=== PATIENT | male | born 1945 | race Caucasian/White ===

== ENCOUNTER 2025-05-25 01:09 | Inpatient (IN) | payer MEDICARE, BC ==
[~2025-05-25] VITALS: Ht 177.8 cm; Wt 67.6 kg
[2025-05-25] MEDS ORDERED: BETH10TA3 PO (01:56)
[2025-05-25] MEDS ORDERED: TEST200V3 IM (01:56)
[2025-05-25] MEDS ORDERED: LEVO100T PO (01:56)
[2025-05-25] MEDS ORDERED: VALA500T PO (01:56)
[2025-05-25] MEDS ORDERED: ALLO100T PO (01:56)
[2025-05-25] MEDS ORDERED: ROSU5TAB PO (01:56)
[2025-05-25] MEDS ORDERED: FLUT16SP16 NS (01:56)
[2025-05-25] MEDS ORDERED: TAMS0.4C PO (01:56)
[2025-05-25] MEDS ORDERED: FLUC100T12 PO (01:56)
[2025-05-25] MEDS ORDERED: FINA5TAB11 PO (01:56)
[2025-05-25] MEDS ORDERED: ESCI10TA PO (01:56)
[2025-05-25] MEDS ORDERED: PANT40TA49 PO (01:56)
[2025-05-25] MEDS ORDERED: PREG-233 PO (01:56)
[2025-05-25] MEDS ORDERED: CALC0.5C11 PO (01:56)
[2025-05-25] MEDS ORDERED: SITA50TA PO (01:56)
[2025-05-25 02:26] LABS: PLATELET COUNT (AUTO) 235 K/uL (152-348); RED BLOOD CELL COUNT(AUTO) 4.59 MIL/uL (4.06-5.63); RED CELL DISTRIBUTION WIDTH 16.1 % (12.1-16.2); WHITE BLOOD COUNT (AUTO) 8.4 K/uL (3.6-10.2)
[2025-05-25] MEDS ORDERED: CEFEPIME HCL 1 G VIAL ONE (02:28)
[2025-05-25 02:31] LABS: CREATININE 2.7 mg/dL (0.6-1.3); SODIUM SERUM 138 mmol/L (136-145); UREA NITROGEN, BLOOD 41 mg/dL (7-18)
[2025-05-25] MEDS: CEFEPIME (MAXEPIME) 1 G in IV DEXTROSE 5% 50 ML IV ONE (02:33)
[2025-05-25 02:46] LABS: ASPARTATE AMINOTRANSFERASE 19 U/L (15-37); TOTAL PROTEIN, SERUM 7.3 g/dL (6.4-8.2)
[2025-05-25 03:48] LABS: *BILIRUBIN,URIN NEGATIVE (NEGATIVE); *BLOOD, URINE 3+ (NEGATIVE); *CLARITY,URINE TURBID (CLEAR); *COLOR,URINE LIGHT YELLOW (YELLOW); *KETONES,URINE 2+ (NEGATIVE); *PROTEIN,URINE 3+ (NEGATIVE); *UROBILINOGEN,URINE 0.2 E.U./dl (NORMAL); LEUKOCYTE ESTERASE ,URINE 3+ (NEGATIVE); NITRITE, URINE NEGATIVE (NEGATIVE); UGLUCOSE NEGATIVE (NEGATIVE)
[2025-05-25] MEDS ORDERED: REMEDY ESSENTIAL ZINC PASTE 113 GM TP PRN (05:30)
[2025-05-25] MEDS ORDERED: ACETAMINOPHEN 325 MG TABLET PO PRN (05:30)
[2025-05-25] MEDS: IV NORMAL SALINE 1000 ML BAG IV ONE (06:15)
[2025-05-25 07:51] VITALS: BP 113/60
[2025-05-25] MEDS ORDERED: ONDANSETRON 4 MG/2 ML VIAL ONE (08:04)
[2025-05-25] MEDS ORDERED: MORPHINE SULFATE 2 MG/1 ML DISP.SYRIN ONE (08:05)
[2025-05-25] MEDS: MORPHINE SULFATE 2 MG/1 ML DISP.SYRIN IV PRN (08:12)
[2025-05-25] MEDS: ONDANSETRON 4 MG/2 ML VIAL IV PRN (08:12)
[2025-05-25 09:03] VITALS: BP 122/55; TEMP 98.6; O2SAT 96
[2025-05-25] MEDS: IV D5/ 0.9% NACL 1,000 ML IV PRN (10:16)
[2025-05-25] MEDS ORDERED: BACL10TA PO (10:28)
[2025-05-25] MEDS ORDERED: FOSFOMYCIN 3 GM PO (10:31)
[2025-05-25] MEDS ORDERED: TAPE150T PO (10:33)
[2025-05-25] MEDS ORDERED: VITA-287 PO (10:36)
[2025-05-25] MEDS ORDERED: CYAN100T44 PO (10:36)
[2025-05-25] MEDS ORDERED: OXYC5TAB3 PO (10:38)
[2025-05-25] MEDS ORDERED: PHENAZOPYRIDINE HCL 100 MG TABLET PO PRN (11:30)
[2025-05-25] MEDS ORDERED: CEFEPIME (MAXEPIME) 1 G in IV DEXTROSE 5% 50 ML IV SCH ×2 (14:00→23:00)
[2025-05-25 16:06] VITALS: BP 133/61; TEMP 97.8; O2SAT 97
[2025-05-25 19:10] VITALS: BP 95/77; TEMP 98.4; O2SAT 95
[2025-05-26 05:18] VITALS: BP 129/76; TEMP 97.7; O2SAT 94
[2025-05-26 07:10] LABS: PLATELET COUNT (AUTO) 208 K/uL (152-348); RED BLOOD CELL COUNT(AUTO) 4.50 MIL/uL (4.06-5.63); RED CELL DISTRIBUTION WIDTH 15.9 % (12.1-16.2); WHITE BLOOD COUNT (AUTO) 10.1 K/uL (3.6-10.2)
[2025-05-26 07:27] LABS: CREATININE 2.4 mg/dL (0.6-1.3); SODIUM SERUM 146 mmol/L (136-145); UREA NITROGEN, BLOOD 30 mg/dL (7-18)
[2025-05-26] MEDS: MEROPENEM 1 G in IV NORMAL SALINE 100 ML IV SCH (09:53)
[2025-05-26 11:04] VITALS: BP 136/77; TEMP 97.3; O2SAT 95
[2025-05-26] MEDS: MAGNESIUM OXIDE 400 MG TABLET PO ONE (11:31)
[2025-05-26] MEDS ORDERED: BACLOFEN 10 MG TABLET PO PRN (11:45)
[2025-05-26] MEDS: OXYCODONE HCL 5 MG TABLET PO PRN (13:38)
[2025-05-26] MEDS ORDERED: PHENAZOPYRIDINE HCL 100 MG TABLET PO SCH ×2 (14:00)
[2025-05-26] MEDS: BETHANECHOL CHLORIDE 10 MG TABLET PO SCH (15:06)
[2025-05-26 15:22] VITALS: BP_SYST 105; BP_SYST 132; BP_DIAS 60; BP_DIAS 78; TEMP 97.8; TEMP 98.3; O2SAT 95; O2SAT 96
[2025-05-26] MEDS: OXYBUTYNIN CHLORIDE 5 MG TABLET PO PRN (16:47)
[2025-05-26] MEDS: ENSURE ENLIVE (VAN) 240 ML LIQUID PO SCH (17:47)
[2025-05-26] MEDS: NEUTRA PHOS PACKET PO ONE (17:47)
[2025-05-26 19:09] VITALS: BP 131/74; TEMP 97.7; O2SAT 96
[2025-05-26] MEDS: ATORVASTATIN 10 MG TABLET PO SCH (21:11)
[2025-05-26] MEDS: PREGABALIN 50 MG CAPSULE PO SCH (21:11)
[2025-05-27 05:39] VITALS: BP 121/67; TEMP 98.3; O2SAT 95
[2025-05-27] MEDS: LEVOTHYROXINE SODIUM 100 MCG TABLET PO SCH (06:37)
[2025-05-27 07:00] LABS: PLATELET COUNT (AUTO) 229 K/uL (152-348); RED BLOOD CELL COUNT(AUTO) 4.50 MIL/uL (4.06-5.63); RED CELL DISTRIBUTION WIDTH 16.3 % (12.1-16.2); WHITE BLOOD COUNT (AUTO) 12.2 K/uL (3.6-10.2)
[2025-05-27 07:34] LABS: CREATININE 2.0 mg/dL (0.6-1.3); SODIUM SERUM 142 mmol/L (136-145); UREA NITROGEN, BLOOD 25 mg/dL (7-18)
[2025-05-27 08:04] VITALS: BP 158/89; TEMP 98.1; O2SAT 95
[2025-05-27] MEDS: ESCITALOPRAM OXALATE 10 MG TABLET PO SCH (08:29)
[2025-05-27] MEDS: LINAGLIPTIN 5 MG TABLET PO SCH (08:29)
[2025-05-27] MEDS: ALLOPURINOL 100 MG TABLET PO SCH (08:30)
[2025-05-27] MEDS: FINASTERIDE 5 MG TABLET PO SCH (08:30)
[2025-05-27] MEDS: CALCITRIOL 0.25 MCG CAPSULE PO SCH (08:31)
[2025-05-27] MEDS: VALACYCLOVIR HCL 500 MG TABLET PO SCH (08:31)
[2025-05-27] MEDS: VITAMIN B COMPLEX 1 TABLET PO SCH (08:31)
[2025-05-27] MEDS: TAMSULOSIN HCL 0.4 MG CAP.SR.24H PO SCH (08:35)
[2025-05-27] MEDS ORDERED: ALLOPURINOL 100 MG TABLET PO SCH (09:00)
[2025-05-27 09:54] LABS: NEUTROPHILS % (MANUAL) 85 % (42-75)
[2025-05-27 09:55] LABS: LYMPHOCYTES % (MANUAL) 7 % (20-40); MONOCYTES % (MANUAL) 8 % (2-10); PLATELET ESTIMATE ADEQUATE
[2025-05-27 12:00] VITALS: BP 143/72; TEMP 98.1; O2SAT 96
[2025-05-27] MEDS: MAGNESIUM SULFATE/D5W 100 ML IV SCH (12:00)
[2025-05-27 16:00] VITALS: BP 116/62; TEMP 97.9; O2SAT 97
[2025-05-27] MEDS: NEUTRA PHOS PACKET PO ONE (17:34)
[2025-05-27 18:40] VITALS: BP 116/62
[2025-05-27 20:53] VITALS: BP 122/63; TEMP 98; O2SAT 97
[2025-05-28] MEDS: BISACODYL 5 MG TABLET.DR PO ONE ×2 (02:45→04:28)
[2025-05-28 04:06] VITALS: BP 126/67; TEMP 98.9; O2SAT 98
[2025-05-28 07:34] LABS: PLATELET COUNT (AUTO) 184 K/uL (152-348); RED BLOOD CELL COUNT(AUTO) 4.27 MIL/uL (4.06-5.63); RED CELL DISTRIBUTION WIDTH 16.3 % (12.1-16.2); WHITE BLOOD COUNT (AUTO) 13.9 K/uL (3.6-10.2)
[2025-05-28 07:52] LABS: CREATININE 1.9 mg/dL (0.6-1.3); SODIUM SERUM 137 mmol/L (136-145); UREA NITROGEN, BLOOD 23 mg/dL (7-18)
[2025-05-28] MEDS: FLUTICASONE PROP NASAL SPRAY 16 GM BOTTLE NS PRN (08:33)
[2025-05-28] MEDS: MAGNESIUM OXIDE 400 MG TABLET PO ONE (10:54)
[2025-05-28 11:34] VITALS: BP 129/66; TEMP 98.7; O2SAT 96
[2025-05-28 15:53] VITALS: BP 126/67; TEMP 98.7; O2SAT 98
[2025-05-28] MEDS: NEUTRA PHOS PACKET PO ONE (16:03)
[2025-05-28 19:40] VITALS: BP 116/71; TEMP 98.2; O2SAT 95
[2025-05-29 05:06] VITALS: BP 132/72; TEMP 98.5; O2SAT 98
[2025-05-29 06:52] LABS: PLATELET COUNT (AUTO) 162 K/uL (152-348); RED BLOOD CELL COUNT(AUTO) 4.14 MIL/uL (4.06-5.63); RED CELL DISTRIBUTION WIDTH 16.3 % (12.1-16.2); WHITE BLOOD COUNT (AUTO) 12.6 K/uL (3.6-10.2)
[2025-05-29 07:07] LABS: CREATININE 1.9 mg/dL (0.6-1.3); SODIUM SERUM 135 mmol/L (136-145); UREA NITROGEN, BLOOD 26 mg/dL (7-18)
[2025-05-29] MEDS: MAGNESIUM OXIDE 400 MG TABLET PO ONE (10:28)
[2025-05-29 11:31] VITALS: BP 144/76; TEMP 97.8; O2SAT 97
[2025-05-29 16:00] VITALS: BP 134/74; TEMP 98.4; O2SAT 97
[2025-05-29] MEDS ORDERED: LACT-246 PO (17:23)
[2025-05-29] MEDS ORDERED: ACET-3752 PO (17:23)
[2025-05-29] MEDS ORDERED: LINA5TAB PO (17:23)
[2025-05-29] MEDS ORDERED: OXYB5TAB21 PO (17:23)
[2025-05-29] MEDS ORDERED: ATOR10TA PO (17:23)
== END 2025-05-29 16:51 | DRG 682 ==
LOC: ER 01:18 → MEDSURG3 08:03
PROVIDERS: ADMIT Nurse Practitioner Acute Care; ATTEND Student in an Organized Health Care Education/Training Program
DX: N17.0 Acute kidney failure with tubular necrosis (principal); G92.8 Other toxic encephalopathy; E44.0 Moderate protein-calorie malnutrition; C85.96 Non-Hodgkin lymphoma, unspecified, intrapelvic lymph nodes; E87.0 Hyperosmolality and hypernatremia; N13.6 Pyonephrosis; K37 Unspecified appendicitis; E03.9 Hypothyroidism, unspecified; E11.22 Type 2 diabetes mellitus with diabetic chronic kidney disease; N18.9 Chronic kidney disease, unspecified; E87.1 Hypo-osmolality and hyponatremia; Z91.040 Latex allergy status; Z88.2 Allergy status to sulfonamides; Z88.0 Allergy status to penicillin; R62.7 Adult failure to thrive; Z87.440 Personal history of urinary (tract) infections; Z92.21 Personal history of antineoplastic chemotherapy; N32.89 Other specified disorders of bladder; E78.5 Hyperlipidemia, unspecified; G89.29 Other chronic pain; M10.9 Gout, unspecified; I44.4 Left anterior fascicular block; Z79.84 Long term (current) use of oral hypoglycemic drugs; Z79.890 Hormone replacement therapy; Z96.0 Presence of urogenital implants; Z90.49 Acquired absence of other specified parts of digestive tract; M62.89 Other specified disorders of muscle
CPT/HCPCS: 36415; 51798; 70030-TC; 70450; 71250; 76770; 83605; 83735; 84100; 84443; 84484; 85025; 85730; 87040; 87086; C1758; G0378; J0692; J2185; J2270; J2405; J3535; J7042; J7070; J8499